=== PATIENT | male | born 1970 | race American Indian/Alaskan Native ===

== ENCOUNTER 2018-09-17 15:57 | Inpatient (IN) | payer OTHER ==
[2018-09-17 15:58] VITALS: BMI 31.8
[2018-09-17 18:03] LABS: VENOUS BLOOD GAS BASE EXCESS 2.4 mmol/L (0.0-2.0); VENOUS BLOOD GAS PCO2 29 mmHg (40-60); VENOUS BLOOD GAS PO2 35 mm/Hg (30-55); VENOUS BLOOD PH 7.53 (7.32-7.43)
[2018-09-17 18:09] LABS: BASO # 0.1 K/uL (0.0-0.2); BASO % 0.3 % (0.0-2.0); EOS % 0.1 % (0.0-4.0); HEMOGLOBIN 15.8 g/dL (12.0-18.0); LYMPH # 0.4 K/uL (1.0-4.3); LYMPH % 2.6 % (20.0-40.0); MEAN CELL VOLUME 85.1 fL (80.0-94.0); MEAN CORPUSCULAR HGB CONC 34.1 g/dL (33.0-37.0); MEAN PLATELET VOLUME 7.6 fL (7.2-11.7); MONO # 0.7 K/uL (0.0-0.8); NEUT # 15.9 K/uL (1.8-7.0); PLATELET COUNT 199 K/uL (130-400); RBC 5.43 Mil/uL (4.40-5.90); RED CELL DISTRIBUTION WIDTH 12.9 % (11.5-14.5); WHITE BLOOD COUNT 17.1 K/uL (4.8-10.8)
[2018-09-17] MEDS ORDERED: Sodium Chloride 0.9% 1,000 ML IV ONE (18:10)
--- NOTE | 2018-09-17 18:10 | C.PDOC ---
History Of Present Illness Patient is a 48 year old male who presents to the ED for evaluation of a cough that has been persistent for 11 days. Patient went to Dr. Jayce Santana for a CXR today, after which he suffered a syncopal episode and was found to be febrile, as per Dr. Santana. Patient states that he did not lose consciousness and just felt SOB and had to sit down. Patient was referred to ED by Dr. Jayce Santana for further evaluation. At the present moment patient is no longer SOB. He has additional complaint of left groin pain which has progressively gotten worse and notes pain when he moves. Patient denies any leg weakness, nausea, vomiting, chills, abdominal pain, or injury. Time Seen by Provider: 09/17/18 16:42 Chief Complaint (Nursing): Flu-like Symptoms History Per: Patient History/Exam Limitations: no limitations Onset/Duration Of Symptoms: Days (11 days ) Recent travel outside of the [place]: No Additional History Per: Patient Past Medical History Reviewed: Historical Data, Nursing Documentation, Vital Signs Vital Signs: Last Vital Signs Temp 101.4 F H 09/17/18 16:17 Pulse 98 H 09/17/18 16:17 Resp 22 09/17/18 16:17 BP 130/78 09/17/18 16:17 Pulse Ox 100 09/17/18 16:17 - Medical History PMH: Denies: Depression Surgical History: No Surg Hx Family History: States: Unknown Family Hx - Social History Hx Tobacco Use: No Hx Alcohol Use: Yes Hx Substance Use: No - Immunization History Hx Tetanus Toxoid Vaccination: No Hx Influenza Vaccination: No Hx Pneumococcal Vaccination: No Review Of Systems Constitutional: Positive for: Fever. Negative for: Chills, Weakness (leg ) Cardiovascular: Negative for: Chest Pain Respiratory: Positive for: Cough. Negative for: Shortness of Breath Gastrointestinal: Negative for: Nausea, Vomiting, Abdominal Pain Genitourinary: Positive for: Scrotal Pain Physical Exam - Physical Exam Appears: Non-toxic, No Acute Distress Skin: Normal Color, Warm, Dry Head: Atraumatic, Normacephalic Eye(s): bilateral: Normal Inspection Oral Mucosa: Moist Neck: Normal ROM, Supple Cardiovascular: Rhythm Regular Respiratory: Normal Breath Sounds, No Rales, No Rhonchi, No Wheezing Gastrointestinal/Abdominal: No Tenderness Male Genital: No Testicular Tenderness, No Testicular Swelling, Other (no hernia, cellulitis, or erythema. + left groin tenderness ) Extremity: No Tenderness (bilateral leg ) Extremity: Left: Other (Limited ROM left hip due to pain), Right: Normal ROM Pulses: Left Dorsalis Pedis: Normal, Right Dorsalis Pedis: Normal ED Course And Treatment - Laboratory Results Result Diagrams: 09/17/18 18:04 09/17/18 18:04 ECG: Interpreted By Me ECG Rhythm: Sinus Rhythm ECG Interpretation: Normal Interpretation Of ECG: normal axis, normal intervals, no ectopy, no ST elevation Rate From EC O2 Sat by Pulse Oximetry: 100 (on RA ) Pulse Ox Interpretation: Normal - Radiology CXR: Read By Radiologist CXR Interpretation: Yes: No Acute Disease Medical Decision Making Medical Decision Making: Patient is a 48 year old male who has presented to the ED for evaluation of a cough. Additional complaint of left groin pain. Plan: Bloodwork, VBG, EKG, CXR, Urinalysis, blood culture, urine culture, Tylenol 975 mg PO, Piperacillin, IV FLuids, Vancomicin 250 mg IVP Patient given tylenol PO for fever and groin pain. On re-eval patient appears much more comfortable and reports pain has improved. Labs done and results noted, particularly elevated lactate and leukocytosis. Patient given 30cc/kg NS bolus. Abx ordered. Case discussed with Dr. Checo Santana who accepts patient for admission to his service for fever of unknown origin. CXR clear, no evidence of pneumonia. Urine pending. Disposition - Disposition Disposition: HOSPITALIZED Disposition Time: 20:34 Condition: STABLE - Clinical Impression Clinical Impression: Fever, Left groin pain - Scribe Statement The provider has reviewed the documentation as recorded by the Carline Art All medical record entries made by the Carline were at my direction and personally dictated by me. I have reviewed the chart and agree that the record accurately reflects my personal performance of the history, physical exam, medical decision making, and the department course for this patient. I have also personally directed, reviewed, and agree with the discharge instructions and disposition.
[2018-09-17 18:16] LABS: INR 1.2; PROTHROMBIN TIME 12.8 SECONDS (9.7-12.2)
[2018-09-17] MEDS ORDERED: Sodium Chloride 0.9% 2,000 ML ONE (18:20)
[2018-09-17] MEDS ORDERED: Piperacill/Tazo 4.5gm in Dex 4.5 GM/100 ML BAG IVPB STA (18:24)
[2018-09-17 18:36] LABS: ALB/GLOB RATIO 1.7 (1.0-2.1); ALBUMIN 4.5 g/dL (3.5-5.0); ALT/SGPT 47 U/L (21-72); AST/SGOT 70 U/L (17-59); BLOOD UREA NITROGEN 22 mg/dL (9-20); CALCIUM 9.5 mg/dl (8.6-10.4); GFR NON-AFRICAN AMERICAN 50
[2018-09-17 18:54] LABS: BANDS 13 % (0-2); LYMPHOCYTE 3 % (20-40); MONOCYTE 2 % (0-10); NEUTROPHIL 81 % (50-75); PLATELET ESTIMATE NORMAL (NORMAL); REACTIVE LYMPHOCYTES 1 % (0-0); TOTAL CELLS COUNTED 100
[2018-09-17] MEDS ORDERED: Vancomycin 1 GM 1 GM/250 ML BAG IVPB ONE (19:03)
[2018-09-17 19:47] LABS: URINE BILIRUBIN NEGATIVE (NEGATIVE); URINE BLOOD NEGATIVE (NEGATIVE); URINE CLARITY Clear (Clear); URINE COLOR Yellow (YELLOW); URINE GLUCOSE (UA) NORMAL (Normal); URINE LEUKOCYTE ESTERASE NEG Leu/uL (Negative); URINE PROTEIN NEGATIVE (NEGATIVE); URINE UROBILINOGEN NORMAL mg/dL (0.2-1.0)
--- NOTE | 2018-09-17 19:48 | RAD ---
HISTORY: Sepsis Patient COMPARISON: Chest x-ray performed 04/07/13 TECHNIQUE: Chest, one view. FINDINGS: Examination limited by habitus. LUNGS: No focal consolidation. Please note that chest x-ray has limited sensitivity for the detection of pulmonary masses. PLEURA: No significant pleural effusion identified. No definite pneumothorax . CARDIOVASCULAR: Heart size appears within normal limits. Atherosclerotic calcification present. OSSEOUS STRUCTURES: No acute osseous abnormality identified. VISUALIZED UPPER ABDOMEN: Unremarkable. OTHER FINDINGS: None. IMPRESSION: No focal consolidation.
[2018-09-17] MEDS ORDERED: Piperacillin/Tazobact 3.375 gm 100 ML IVPB ONE (19:58)
[2018-09-17 20:03] LABS: VENOUS BLOOD GAS PCO2 26 mmHg (40-60); VENOUS BLOOD GAS PO2 25 mm/Hg (30-55); VENOUS BLOOD PH 7.38 (7.32-7.43)
--- NOTE | 2018-09-17 21:13 | CP.PCM.HP ---
Past Patient History - Past Social History Smoking Status: Never Smoked - PSYCHIATRIC Hx Depression: No Hx Substance Use: No - SURGICAL HISTORY Hx Surgeries: No Meds Allergies/Adverse Reactions: Allergies Allergy/AdvReac Type Severity Reaction Status Date / Time No Known Allergies Allergy Verified 03/12/13 10:47 Physical Exam - Constitutional Appears: Well - Head Exam Head Exam: ATRAUMATIC, NORMAL INSPECTION, NORMOCEPHALIC - Eye Exam Eye Exam: EOMI, Normal appearance, PERRL Pupil Exam: NORMAL ACCOMODATION, PERRL - ENT Exam ENT Exam: Mucous Membranes Moist, Normal Exam - Neck Exam Neck exam: Positive for: Normal Inspection - Respiratory Exam Respiratory Exam: Decreased Breath Sounds - Cardiovascular Exam Cardiovascular Exam: REGULAR RHYTHM, +S1, +S2 - GI/Abdominal Exam GI & Abdominal Exam: Diminished Bowel Sounds, Soft - Rectal Exam Rectal Exam: Deferred Results - Vital Signs Recent Vital Signs: Last Vital Signs Temp 99.6 F 09/17/18 21:10 Pulse 88 09/17/18 21:10 Resp 20 09/17/18 21:10 BP 100/60 09/17/18 21:10 Pulse Ox 100 09/17/18 21:10 - Labs Result Diagrams: 09/17/18 18:04 09/17/18 18:04 Labs: Laboratory Results - last 24 hr 09/17/18 09/17/18 09/17/18 17:50 18:04 18:04 WBC 17.1 H D RBC 5.43 Hgb 15.8 Hct 46.2 MCV 85.1 MCH 29.0 MCHC 34.1 RDW 12.9 Plt Count 199 MPV 7.6 Neut % (Auto) 93.0 H Lymph % (Auto) 2.6 L [place] % (Auto) 4.0 Eos % (Auto) 0.1 Baso % (Auto) 0.3 Neut # (Auto) 15.9 H Lymph # (Auto) 0.4 L [place] # (Auto) 0.7 Eos # (Auto) 0.0 Baso # (Auto) 0.1 Neutrophils % (Manual) 81 H Band Neutrophils % 13 H* Lymphocytes % (Manual) 3 L Reactive Lymphs % 1 H Monocytes % (Manual) 2 Platelet Estimate Normal PT 12.8 H INR 1.2 APTT 26 pO2 35 VBG pH 7.53 H VBG pCO2 29 L VBG HCO3 26.2 VBG Total CO2 25.1 VBG O2 Sat (Calc) 84.9 H VBG Base Excess 2.4 H VBG Potassium 3.0 L A-a O2 Difference Sodium 138.0 Chloride 104.0 Glucose 100 Lactate 2.8 H FiO2 21.0 Crit Value Called To Crit Value Called By Crit Value Read Back Blood Gas Notified Time Potassium Carbon Dioxide Anion Gap BUN Creatinine Est GFR ( Amer) Est GFR (Non-Af Amer) Random Glucose Calcium Phosphorus Magnesium Total Bilirubin AST ALT Alkaline Phosphatase Total Protein Albumin Globulin Albumin/Globulin Ratio Venous Blood Potassium 3.0 L Urine Color Urine Clarity Urine pH Ur Specific [place] Urine Protein Urine Glucose (UA) Urine Ketones Urine Blood Urine Nitrate Urine Bilirubin Urine Urobilinogen Ur Leukocyte Esterase Urine WBC (Auto) Influenza Typ A,B (EIA) 09/17/18 09/17/18 09/17/18 18:04 19:16 19:37 WBC RBC Hgb Hct MCV MCH MCHC RDW Plt Count MPV Neut % (Auto) Lymph % (Auto) [place] % (Auto) Eos % (Auto) Baso % (Auto) Neut # (Auto) Lymph # (Auto) [place] # (Auto) Eos # (Auto) Baso # (Auto) Neutrophils % (Manual) Band Neutrophils % Lymphocytes % (Manual) Reactive Lymphs % Monocytes % (Manual) Platelet Estimate PT INR APTT pO2 VBG pH VBG pCO2 VBG HCO3 VBG Total CO2 VBG O2 Sat (Calc) VBG Base Excess VBG Potassium A-a O2 Difference Sodium 136 Chloride 100 Glucose Lactate FiO2 Crit Value Called To Crit Value Called By Crit Value Read Back Blood Gas Notified Time Potassium 3.3 L Carbon Dioxide 27 Anion Gap 13 BUN 22 H Creatinine 1.5 Est GFR ( Amer) > 60 Est GFR (Non-Af Amer) 50 Random Glucose 97 Calcium 9.5 Phosphorus < 0.5 L* Magnesium 1.7 Total Bilirubin 0.8 AST 70 H ALT 47 Alkaline Phosphatase 66 Total Protein 7.2 Albumin 4.5 Globulin 2.7 Albumin/Globulin Ratio 1.7 Venous Blood Potassium Urine Color Yellow Urine Clarity Clear Urine pH 7.0 Ur Specific [place] 1.006 Urine Protein Negative Urine Glucose (UA) Normal Urine Ketones Negative Urine Blood Negative Urine Nitrate Negative Urine Bilirubin Negative Urine Urobilinogen Normal Ur Leukocyte Esterase Neg Urine WBC (Auto) < 1 Influenza Typ A,B (EIA) Negative for flu a/b 09/17/18 19:50 WBC RBC Hgb Hct MCV MCH MCHC RDW Plt Count MPV Neut % (Auto) Lymph % (Auto) [place] % (Auto) Eos % (Auto) Baso % (Auto) Neut # (Auto) Lymph # (Auto) [place] # (Auto) Eos # (Auto) Baso # (Auto) Neutrophils % (Manual) Band Neutrophils % Lymphocytes % (Manual) Reactive Lymphs % Monocytes % (Manual) Platelet Estimate PT INR APTT pO2 25 L VBG pH 7.38 VBG pCO2 26 L VBG HCO3 17.2 VBG Total CO2 16.2 L VBG O2 Sat (Calc) 67.5 H VBG Base Excess -8.0 L VBG Potassium 1.8 L* A-a O2 Difference 92.0 Sodium 148.0 Chloride 122.0 H Glucose 69 L Lactate 1.7 FiO2 21.0 Crit Value Called To Er doctor Crit Value Called By Isai Crit Value Read Back Y Blood Gas Notified Time 2001 Potassium Carbon Dioxide Anion Gap BUN Creatinine Est GFR ( Amer) Est GFR (Non-Af Amer) Random Glucose Calcium Phosphorus Magnesium Total Bilirubin AST ALT Alkaline Phosphatase Total Protein Albumin Globulin Albumin/Globulin Ratio Venous Blood Potassium 1.8 L* Urine Color Urine Clarity Urine pH Ur Specific [place] Urine Protein Urine Glucose (UA) Urine Ketones Urine Blood Urine Nitrate Urine Bilirubin Urine Urobilinogen Ur Leukocyte Esterase Urine WBC (Auto) Influenza Typ A,B (EIA)
[2018-09-17] MEDS ORDERED: Vancomycin 1 gm/NS 200 ml 1 GM/200 ML BAG IVPB SCH (22:00)
[2018-09-18] MEDS: Piperacill/Tazo 3.375gm in Dex 3.375 GM/50 ML BAG IVPB SCH ×4 (02:19→20:22)
[2018-09-18] MEDS: Enoxaparin 40 mg Syringe SC SCH (10:05)
[2018-09-18] MEDS ORDERED: Vancomycin 1 gm/NS 200 ml 1 GM/200 ML BAG IVPB SCH (19:00)
--- NOTE | 2018-09-18 21:24 | CP.PCM.PN ---
Subjective - Date & Time of Evaluation Date of Evaluation: 09/18/18 Time of Evaluation: 08:00 - Subjective Subjective: clinically same Objective - Vital Signs/Intake and Output Vital Signs (last 24 hours): Temp Pulse Resp BP Pulse Ox 98.4 F 71 20 108/67 96 09/18/18 16:34 09/18/18 16:34 09/18/18 16:34 09/18/18 16:34 09/18/18 16:34 Intake and Output: 09/18/18 09/19/18 18:59 06:59 Intake Total 910 Output Total 750 Balance 160 - Medications Medications: Current Medications Enoxaparin Sodium (Lovenox) 40 mg SC DAILY [facility] Last Admin: 09/18/18 10:05 Dose: 40 mg Piperacillin Sod/Tazobactam Sod (Zosyn 3.375 Gm Iv Premix) 3.375 gm in 50 mls @ 100 mls/hr IVPB Q6H [facility]; Protocol Last Admin: 09/18/18 20:22 Dose: 100 mls/hr Vancomycin/Sodium Chloride (Vancomycin 1 Gm/Ns 200 Ml) 1 gm in 200 mls @ 133 mls/hr IVPB Q24H [facility]; Protocol Stop: 09/23/18 19:01 Last Admin: 09/18/18 18:01 Dose: 133 mls/hr - Labs Labs: 09/17/18 18:04 09/17/18 18:04 PT 12.8 SECONDS (9.7-12.2) H 09/17/18 18:04 INR 1.2 09/17/18 18:04 APTT 26 SECONDS (21-34) 09/17/18 18:04
[2018-09-19] MEDS: Piperacill/Tazo 3.375gm in Dex 3.375 GM/50 ML BAG IVPB SCH ×4 (03:27→20:17)
[2018-09-19] MEDS: Enoxaparin 40 mg Syringe SC SCH (09:59)
--- NOTE | 2018-09-19 16:04 | CP.PCM.CON ---
History of Present Illness - History of Present Illness History of Present Illness: 48 year old male came to the ED for evaluation of a cough that has been persistent for 11 days. Patient went to Dr. Jayce Santana for a CXR today, after which he suffered a syncopal episode and was found to be febrile, Patient also c/o swelling LLE denies chest pain fever less + cough - Medical History PMH: cellulitis Denies: Depression Surgical History: No Surg Hx Family History: States: Unknown Family Hx - Social History Hx Tobacco Use: No Review of Systems - Review of Systems All systems: reviewed and no additional remarkable complaints except - Constitutional Constitutional: As Per HPI - EENT Eyes: absent: As Per HPI, Blind Spots, Blurred Vision, Change in Vision, Decreased Night Vision, Diplopia, Discharge, Dry Eye, Exophthalmos, Floaters, Irritation, Itchy Eyes, Loss of Peripheral Vision, Pain, Photophobia, Requires Corrective Lenses, Sees Flashes, Spots in Vision, Tunnel Vision, Other Visual Disturbances, Loss of Vision, Other Ears: absent: As Per HPI, Decreased Hearing, Ear Discharge, Ear Pain, Tinnitus, Abnormal Hearing, Disequilibrium, Dizziness, Other Nose/Mouth/Throat: absent: As Per HPI, Epistaxis, Nasal Congestion, Nasal Discharge, Nasal Obstruction, Nasal Trauma, Nose Pain, Post Nasal Drip, Sinus Pain, Sinus Pressure, Bleeding Gums, Change in Voice, Dental Pain, Dry Mouth, Dysphagia, Halitosis, Hoarsness, Lip Swelling, Mouth Lesions, Mouth Pain, Odynophagia, Sore Throat, Throat Swelling, Tongue Swelling, Facial Pain, Neck Pain, Neck Mass, Other - Cardiovascular Cardiovascular: As Per HPI - Respiratory Respiratory: As Per HPI, Cough. absent: Dyspnea - Gastrointestinal Gastrointestinal: absent: As Per HPI, Abdominal Pain, Belching, Bloating, Change in Bowel Habits, Change in Stool Character, Coffee Ground Emesis, Constipation, Cramping, Diarrhea, Dyspepsia, Dysphagia, Early Satiety, Excessive Flatus, Fecal Incontinence, Heartburn, Hematemesis, Hematochezia, Loose Stools, Melena, Nausea, Odynophagia, Temesmus, Vomiting, Other - Genitourinary Genitourinary: absent: As Per HPI, Change in Urinary Stream, Difficulty Urinating, Dysuria, Flank Pain, Hematuria, Pyuria, Nocturia, Urinary Incontinence, Urinary Frequency, Urinary Hesitance, Urinary Urgency, Voiding Freq/Small Amts, Freq UTI, Hx Renal/Bladder Calculi, Hx /Renal Surgery, Bladder Distension, Other - Musculoskeletal Musculoskeletal: As Per HPI - Integumentary Integumentary: As Per HPI - Neurological Neurological: absent: As Per HPI, Abnormal Gait, Abnormal Hearing, Abnormal Movements, Abnormal Speech, Behavioral Changes, Burning Sensations, Confusion, Convulsions, Disequilibrium, Dizziness, Numbness, Focal Weakness, Frequent Falls, Headaches, Lack of Coordination, Loss of Vision, Memory Loss, Paresthesias, Radicular Pain, Restless Legs, Sensory Deficit, Syncope, Tingling, Tremor, Vertigo, Weakness, Other Visual Disturbances, Other - Psychiatric Psychiatric: absent: As Per HPI, Abnormal Sleep Pattern, Anhedonia, Anxiety, Auditory Hallucinations, Behavioral Changes, Change in Appetite, Change in Libido, Confusion, Depression, Difficulty Concentrating, Hallucinations, Homicidal Ideation, Hopelessness, Irritability, Memory Loss, Mood Swings, Panic Attacks, Paranoia, Suicidal Ideation, Visual Hallucinations, Tactile Hallucinations, Other - Endocrine Endocrine: absent: As Per HPI, Change in Body Appearance, Change in Libido, Cold Intolorance, Deepening of Voice, Excessive Sweating, Fatigue, Flushing, Heat Intolorance, Increase in Ring/Shoe/Hat Size, Palpitations, Polydipsia, Polyphagia, Polyuria, Other - Hematologic/Lymphatic Hematologic: absent: As Per HPI, Easy Bleeding, Easy Bruising, Lymphadenopathy, Other Past Patient History - Past Medical History & Family History Past Medical History?: No - Past Social History Smoking Status: Never Smoked - MUSCULOSKELETAL/RHEUMATOLOGICAL Hx Falls: No - PSYCHIATRIC Hx Depression: No Hx Substance Use: No - SURGICAL HISTORY Hx Surgeries: No - ANESTHESIA Hx Anesthesia: No Meds Allergies/Adverse Reactions: Allergies Allergy/AdvReac Type Severity Reaction Status Date / Time No Known Allergies Allergy Verified 03/12/13 10:47 - Medications Medications: Current Medications Enoxaparin Sodium (Lovenox) 40 mg SC DAILY [facility] Last Admin: 09/19/18 09:59 Dose: 40 mg Piperacillin Sod/Tazobactam Sod (Zosyn 3.375 Gm Iv Premix) 3.375 gm in 50 mls @ 100 mls/hr IVPB Q6H [facility]; Protocol Last Admin: 09/19/18 14:03 Dose: 100 mls/hr Vancomycin/Sodium Chloride (Vancomycin 1 Gm/Ns 200 Ml) 1 gm in 200 mls @ 133 mls/hr IVPB Q24H [facility]; Protocol Stop: 09/23/18 19:01 Last Admin: 09/18/18 18:01 Dose: 133 mls/hr Physical Exam - Constitutional Appears: Non-toxic - Head Exam Head Exam: ATRAUMATIC, NORMOCEPHALIC - Eye Exam Eye Exam: EOMI, PERRL. absent: Scleral icterus - ENT Exam ENT Exam: Mucous Membranes Moist. absent: Normal Oropharynx - Neck Exam Neck exam: Negative for: Lymphadenopathy - Respiratory Exam Respiratory Exam: Decreased Breath Sounds - Cardiovascular Exam Cardiovascular Exam: REGULAR RHYTHM - GI/Abdominal Exam GI & Abdominal Exam: Diminished Bowel Sounds, Soft. absent: Tenderness - Rectal Exam Rectal Exam: Deferred - Exam Exam: NORMAL INSPECTION - Extremities Exam Extremities exam: Positive for: pedal edema, tenderness, pedal pulses present. Negative for: calf tenderness - Back Exam Back exam: absent: CVA tenderness (L), CVA tenderness (R) - Neurological Exam Neurological exam: Alert, CN II-XII Intact, Oriented x3, Reflexes Normal - Psychiatric Exam Psychiatric exam: Depressed Results - Vital Signs Recent Vital Signs: Last Vital Signs Temp 98.1 F 09/19/18 07:48 Pulse 65 09/19/18 07:48 Resp 20 09/19/18 07:48 BP 135/84 09/19/18 07:48 Pulse Ox 97 09/19/18 07:48 - Labs Result Diagrams: 09/17/18 18:04 09/17/18 18:04 Assessment & Plan (1) Fever Status: Acute (2) Left groin pain Status: Acute - Assessment and Plan (Free Text) Assessment: cont rx for cellulitis LLE consider CT angio chest venous doppler to r/o DVT DVT prophylaxis
[2018-09-19] MEDS: Vancomycin 1 gm/NS 200 ml 1 GM/200 ML BAG IVPB SCH (17:43)
--- NOTE | 2018-09-19 20:36 | CP.PCM.PN ---
Subjective - Date & Time of Evaluation Date of Evaluation: 09/19/18 Time of Evaluation: 07:45 - Subjective Subjective: clinically same Objective - Vital Signs/Intake and Output Vital Signs (last 24 hours): Temp Pulse Resp BP Pulse Ox 98.2 F 57 L 20 105/56 L 97 09/19/18 16:05 09/19/18 16:05 09/19/18 16:05 09/19/18 16:05 09/19/18 16:05 Intake and Output: 09/19/18 09/20/18 18:59 06:59 Intake Total 700 Balance 700 - Medications Medications: Current Medications Enoxaparin Sodium (Lovenox) 40 mg SC DAILY [facility] Last Admin: 09/19/18 09:59 Dose: 40 mg Piperacillin Sod/Tazobactam Sod (Zosyn 3.375 Gm Iv Premix) 3.375 gm in 50 mls @ 100 mls/hr IVPB Q6H [facility]; Protocol Last Admin: 09/19/18 20:17 Dose: 100 mls/hr Vancomycin/Sodium Chloride (Vancomycin 1 Gm/Ns 200 Ml) 1 gm in 200 mls @ 133.333 mls/hr IVPB Q12H [facility]; Protocol Last Admin: 09/19/18 17:43 Dose: 133.333 mls/hr - Labs Labs: 09/17/18 18:04 09/17/18 18:04 PT 12.8 SECONDS (9.7-12.2) H 09/17/18 18:04 INR 1.2 09/17/18 18:04 APTT 26 SECONDS (21-34) 09/17/18 18:04
[2018-09-19 20:53] LABS: BASO # 0.1 K/uL (0.0-0.2); BASO % 0.8 % (0.0-2.0); EOS # 0.2 K/uL (0.0-0.7); EOS % 1.4 % (0.0-4.0); HEMOGLOBIN 14.5 g/dL (12.0-18.0); LYMPH # 1.9 K/uL (1.0-4.3); LYMPH % 13.5 % (20.0-40.0); MEAN CELL VOLUME 86.8 fL (80.0-94.0); MEAN CORPUSCULAR HEMOGLOBIN 29.1 pg (27.0-31.0); MEAN CORPUSCULAR HGB CONC 33.5 g/dL (33.0-37.0); MEAN PLATELET VOLUME 7.6 fL (7.2-11.7); MONO # 0.6 K/uL (0.0-0.8); MONO % 4.4 % (0.0-10.0); NEUT # 11.2 K/uL (1.8-7.0); NEUT % 79.9 % (50.0-75.0); RBC 4.98 Mil/uL (4.40-5.90)
[2018-09-19 21:06] LABS: ALB/GLOB RATIO 1.4 (1.0-2.1); ALBUMIN 3.9 g/dL (3.5-5.0); ALT/SGPT 33 U/L (21-72); AST/SGOT 35 U/L (17-59); BLOOD UREA NITROGEN 14 mg/dL (9-20); CALCIUM 8.8 mg/dl (8.6-10.4); GFR NON-AFRICAN AMERICAN 50
[2018-09-20] MEDS: Piperacill/Tazo 3.375gm in Dex 3.375 GM/50 ML BAG IVPB SCH ×4 (02:30→20:26)
[2018-09-20] MEDS: Vancomycin 1 gm/NS 200 ml 1 GM/200 ML BAG IVPB SCH ×2 (05:18→17:22)
[2018-09-20 07:57] LABS: HEPATITIS B SURFACE AG Negative (NEGATIVE)
[2018-09-20 07:59] LABS: BASO # 0.1 K/uL (0.0-0.2); BASO % 0.6 % (0.0-2.0); EOS # 0.2 K/uL (0.0-0.7); EOS % 1.5 % (0.0-4.0); HEMOGLOBIN 14.7 g/dL (12.0-18.0); LYMPH # 1.6 K/uL (1.0-4.3); LYMPH % 15.6 % (20.0-40.0); MEAN CELL VOLUME 86.9 fL (80.0-94.0); MEAN CORPUSCULAR HEMOGLOBIN 29.8 pg (27.0-31.0); MEAN CORPUSCULAR HGB CONC 34.3 g/dL (33.0-37.0); MEAN PLATELET VOLUME 7.9 fL (7.2-11.7); MONO # 0.5 K/uL (0.0-0.8); MONO % 4.8 % (0.0-10.0); NEUT # 8.1 K/uL (1.8-7.0); NEUT % 77.5 % (50.0-75.0); RBC 4.92 Mil/uL (4.40-5.90); WHITE BLOOD COUNT 10.4 K/uL (4.8-10.8)
[2018-09-20 08:03] LABS: HEPATITIS A IGM NEGATIVE (NEGATIVE); HEPATITIS B CORE AB NEGATIVE (NEGATIVE)
[2018-09-20 08:14] LABS: HEPATITIS C ANTIBODY NEGATIVE (NEGATIVE)
[2018-09-20 08:15] LABS: ALB/GLOB RATIO 1.4 (1.0-2.1); ALBUMIN 3.7 g/dL (3.5-5.0); ALT/SGPT 33 U/L (21-72); AST/SGOT 32 U/L (17-59); BLOOD UREA NITROGEN 12 mg/dL (9-20); GFR NON-AFRICAN AMERICAN 54
[2018-09-20] MEDS: Enoxaparin 40 mg Syringe SC SCH (09:59)
--- NOTE | 2018-09-20 12:21 | CARD ---
APPROVED REPORT Date of service: 09/17/2018 EKG Measurement Heart [id number] <Conclusion> Normal sinus rhythm Normal ECG
--- NOTE | 2018-09-20 12:39 | CP.PCM.PN ---
Subjective - Date & Time of Evaluation Date of Evaluation: 09/20/18 Time of Evaluation: 09:00 - Subjective Subjective: AFEB 'C/O PAIN LLE Objective - Vital Signs/Intake and Output Vital Signs (last 24 hours): Temp Pulse Resp BP Pulse Ox 98.1 F 60 95 H 155/84 H 95 09/20/18 07:00 09/20/18 07:00 09/20/18 07:00 09/20/18 07:00 09/20/18 07:00 Intake and Output: 09/20/18 09/20/18 06:59 18:59 Intake Total 250 Output Total 800 Balance -550 - Medications Medications: Current Medications Enoxaparin Sodium (Lovenox) 40 mg SC DAILY [facility] Last Admin: 09/20/18 09:59 Dose: 40 mg Piperacillin Sod/Tazobactam Sod (Zosyn 3.375 Gm Iv Premix) 3.375 gm in 50 mls @ 100 mls/hr IVPB Q6H [facility]; Protocol Last Admin: 09/20/18 09:59 Dose: 100 mls/hr Vancomycin/Sodium Chloride (Vancomycin 1 Gm/Ns 200 Ml) 1 gm in 200 mls @ 133.333 mls/hr IVPB Q12H [facility]; Protocol Last Admin: 09/20/18 05:18 Dose: 133.333 mls/hr - Labs Labs: 09/20/18 07:46 09/20/18 07:46 PT 12.8 SECONDS (9.7-12.2) H 09/17/18 18:04 INR 1.2 09/17/18 18:04 APTT 26 SECONDS (21-34) 09/17/18 18:04 - Constitutional Appears: Non-toxic, Chronically Ill - Head Exam Head Exam: NORMOCEPHALIC - Eye Exam Eye Exam: absent: Scleral icterus - ENT Exam ENT Exam: Mucous Membranes Dry - Neck Exam Neck Exam: absent: Thyromegaly - Respiratory Exam Respiratory Exam: Decreased Breath Sounds - Cardiovascular Exam Cardiovascular Exam: REGULAR RHYTHM - GI/Abdominal Exam GI & Abdominal Exam: Distended - Rectal Exam Rectal Exam: Deferred - Exam Exam: NORMAL INSPECTION - Extremities Exam Extremities Exam: Pedal Edema, Tenderness. absent: Calf Tenderness - Back Exam Back Exam: absent: CVA tenderness (L), CVA tenderness (R), paraspinal tenderness - Neurological Exam Neurological Exam: Alert, Awake, Oriented x3 Assessment and Plan (1) Fever Status: Acute (2) Left groin pain Status: Acute - Assessment and Plan (Free Text) Assessment: AWAIT CULTURES CONT IV RX IMAGING NEEDED
--- NOTE | 2018-09-20 12:40 | CP.PCM.PCO ---
Physician Communication Note - Physician Communication Note Physician Communication Note: AWAIT ULTRASOUND PROCALCITONIN HIGH ? ABSCESS LLE
[2018-09-20 16:37] VITALS: RESP 20
--- NOTE | 2018-09-20 17:58 | CP.PCM.PN ---
Subjective - Date & Time of Evaluation Date of Evaluation: 09/20/18 Time of Evaluation: 08:15 - Subjective Subjective: clinically same Objective - Vital Signs/Intake and Output Vital Signs (last 24 hours): Temp Pulse Resp BP Pulse Ox 98.0 F 63 20 135/74 99 09/20/18 16:35 09/20/18 16:35 09/20/18 16:35 09/20/18 16:35 09/20/18 16:35 Intake and Output: 09/20/18 09/20/18 06:59 18:59 Intake Total 250 580 Output Total 800 Balance -550 580 - Medications Medications: Current Medications Enoxaparin Sodium (Lovenox) 40 mg SC DAILY [facility] Last Admin: 09/20/18 09:59 Dose: 40 mg Piperacillin Sod/Tazobactam Sod (Zosyn 3.375 Gm Iv Premix) 3.375 gm in 50 mls @ 100 mls/hr IVPB Q6H [facility]; Protocol Last Admin: 09/20/18 14:16 Dose: 100 mls/hr Vancomycin/Sodium Chloride (Vancomycin 1 Gm/Ns 200 Ml) 1 gm in 200 mls @ 133.333 mls/hr IVPB Q12H [facility]; Protocol Last Admin: 09/20/18 17:22 Dose: 133.333 mls/hr - Labs Labs: 09/20/18 07:46 09/20/18 07:46 PT 12.8 SECONDS (9.7-12.2) H 09/17/18 18:04 INR 1.2 09/17/18 18:04 APTT 26 SECONDS (21-34) 09/17/18 18:04
[2018-09-21] MEDS: Piperacill/Tazo 3.375gm in Dex 3.375 GM/50 ML BAG IVPB SCH ×4 (02:26→21:17)
[2018-09-21] MEDS: Vancomycin 1 gm/NS 200 ml 1 GM/200 ML BAG IVPB SCH ×2 (05:17→16:41)
[2018-09-21 08:02] LABS: BASO # 0.1 K/uL (0.0-0.2); BASO % 0.8 % (0.0-2.0); EOS # 0.2 K/uL (0.0-0.7); EOS % 3.6 % (0.0-4.0); HEMOGLOBIN 14.9 g/dL (12.0-18.0); LYMPH # 1.7 K/uL (1.0-4.3); LYMPH % 26.1 % (20.0-40.0); MEAN CELL VOLUME 86.9 fL (80.0-94.0); MEAN CORPUSCULAR HEMOGLOBIN 29.6 pg (27.0-31.0); MEAN CORPUSCULAR HGB CONC 34.1 g/dL (33.0-37.0); MEAN PLATELET VOLUME 7.9 fL (7.2-11.7); MONO # 0.4 K/uL (0.0-0.8); MONO % 5.6 % (0.0-10.0); NEUT # 4.2 K/uL (1.8-7.0); NEUT % 63.9 % (50.0-75.0); RBC 5.04 Mil/uL (4.40-5.90); RED CELL DISTRIBUTION WIDTH 12.9 % (11.5-14.5); WHITE BLOOD COUNT 6.6 K/uL (4.8-10.8)
[2018-09-21 08:26] LABS: ALB/GLOB RATIO 1.3 (1.0-2.1); ALBUMIN 3.7 g/dL (3.5-5.0); ALT/SGPT 30 U/L (21-72); AST/SGOT 31 U/L (17-59); BLOOD UREA NITROGEN 13 mg/dL (9-20); CALCIUM 8.9 mg/dl (8.6-10.4); GFR NON-AFRICAN AMERICAN 54
[2018-09-21] MEDS: Enoxaparin 40 mg Syringe SC SCH (09:31)
[2018-09-21] MEDS ORDERED: Pneumococcal 23-Valent Vaccine IM ONE (10:00)
[2018-09-21] MEDS ORDERED: Influenza Vaccine 60 mcg/0.5 mL SYR (4YR UP) IM ONE (10:00)
--- NOTE | 2018-09-21 11:40 | CP.PCM.PN ---
Subjective - Date & Time of Evaluation Date of Evaluation: 09/21/18 Time of Evaluation: 09:00 - Subjective Subjective: less septic no abscess left leg still warm and tender no pus all cultures neg procalcitonin is > 2 cont IV rx and wound care Objective - Vital Signs/Intake and Output Vital Signs (last 24 hours): Temp Pulse Resp BP Pulse Ox 98.1 F 58 L 20 130/82 96 09/21/18 08:06 09/21/18 08:06 09/21/18 08:06 09/21/18 08:06 09/21/18 08:06 Intake and Output: 09/21/18 09/21/18 06:59 18:59 Intake Total 550 Output Total 500 Balance 50 - Medications Medications: Current Medications Enoxaparin Sodium (Lovenox) 40 mg SC DAILY [facility] Last Admin: 09/21/18 09:31 Dose: 40 mg Piperacillin Sod/Tazobactam Sod (Zosyn 3.375 Gm Iv Premix) 3.375 gm in 50 mls @ 100 mls/hr IVPB Q6H [facility]; Protocol Last Admin: 09/21/18 08:54 Dose: 100 mls/hr Vancomycin/Sodium Chloride (Vancomycin 1 Gm/Ns 200 Ml) 1 gm in 200 mls @ 133.333 mls/hr IVPB Q12H [facility]; Protocol Last Admin: 09/21/18 05:17 Dose: 133.333 mls/hr - Labs Labs: 09/21/18 07:53 09/21/18 07:54 PT 12.8 SECONDS (9.7-12.2) H 09/17/18 18:04 INR 1.2 09/17/18 18:04 APTT 26 SECONDS (21-34) 09/17/18 18:04 - Constitutional Appears: Well - Head Exam Head Exam: ATRAUMATIC, NORMAL INSPECTION, NORMOCEPHALIC - Eye Exam Eye Exam: EOMI, Normal appearance, PERRL Pupil Exam: NORMAL ACCOMODATION, PERRL - ENT Exam ENT Exam: Mucous Membranes Moist, Normal Exam - Neck Exam Neck Exam: Full ROM, Normal Inspection. absent: Lymphadenopathy - Respiratory Exam Respiratory Exam: Clear to Ausculation Bilateral, NORMAL BREATHING PATTERN - Cardiovascular Exam Cardiovascular Exam: REGULAR RHYTHM, +S1, +S2. absent: Murmur - GI/Abdominal Exam GI & Abdominal Exam: Soft, Normal Bowel Sounds. absent: Tenderness - Rectal Exam Rectal Exam: NORMAL INSPECTION - Extremities Exam Extremities Exam: Full ROM, Normal Capillary Refill, Pedal Edema, Tenderness. absent: Joint Swelling, Normal Inspection - Back Exam Back Exam: NORMAL INSPECTION - Neurological Exam Neurological Exam: Alert, Awake, CN II-XII Intact, Normal Gait, Oriented x3 - Psychiatric Exam Psychiatric exam: Normal Affect, Normal Mood - Skin Skin Exam: Dry, Intact, Normal Color, Warm Assessment and Plan (1) Fever Status: Acute (2) Left groin pain Status: Acute
--- NOTE | 2018-09-21 15:11 | VASCLAB ---
Date of service: 09/20/2018 PROCEDURE: Lower Extremity Venous Duplex Exam. HISTORY: r/o DVT left leg PRIORS: None. TECHNIQUE: Bilateral common femoral, femoral, popliteal and posterior tibial, peroneal and great saphenous veins were evaluated. Flow was assessed with color Doppler, compressibility, assessment of phasic flow and augmentation response. Report prepared by Royal Zayas, CRISTIAN, RVT FINDINGS: RIGHT: 1. Common Femoral Vein: 1.1. Compressibility - Fully compressible: Thrombus - None : Flow - Phasic: Augmentation -Normal: Reflux - None. 2. Femoral Vein: 2.1. Compressibility - Fully compressible: Thrombus - None : Flow - Phasic: Augmentation -Normal: Reflux - None. 3. Popliteal Vein: 3.1. Compressibility - Fully compressible: Thrombus - None : Flow - Phasic: Augmentation -Normal: Reflux - None. 4. Posterior Tibial Vein: 4.1. Compressibility - Fully compressible: Thrombus - None: Flow - Phasic: Augmentation -Normal: Reflux - None. 5. Peroneal Vein: 5.1. Compressibility - Fully compressible: Thrombus - None: Flow - Phasic: Augmentation -Normal: Reflux - None. 6. Great Saphenous Vein: 6.1. Compressibility - Fully compressible: Thrombus - None: Flow - Phasic: Augmentation - Normal: Reflux - None. LEFT: 1. Common Femoral Vein: 1.1. Compressibility - Fully compressible: Thrombus - None: Flow - Phasic: Augmentation -Normal: Reflux - None. 2. Femoral Vein: 2.1. Compressibility - Fully compressible: Thrombus - None: Flow - Phasic: Augmentation -Normal: Reflux - None. 3. Popliteal Vein: 3.1. Compressibility - Fully compressible: Thrombus - None : Flow - Phasic: Augmentation -Normal: Reflux - None. 4. Posterior Tibial Vein: 4.1. Compressibility - Fully compressible: Thrombus - None: Flow - Phasic: Augmentation -Normal: Reflux - None. 5. Peroneal Vein: 5.1. Compressibility - Fully compressible: Thrombus - None: Flow - Phasic: Augmentation -Normal: Reflux - None. 6. Great Saphenous Vein: 6.1. Compressibility - Fully compressible: Thrombus - None: Flow - Phasic: Augmentation - Normal: Reflux - None. OTHER FINDINGS: Right: None significant. Left: None significant. IMPRESSION: Right: No evidence of deep or superficial vein thrombosis of the right lower extremity. Normal valve function noted of the right side. Left: No evidence of deep or superficial vein thrombosis of the left lower extremity. Normal valve function noted of the left side.
--- NOTE | 2018-09-21 16:23 | CP.PCM.CON ---
History of Present Illness - History of Present Illness History of Present Illness: Vascular Surgery Progress note. Dr. Tesfaye 48yo M with no significant PMHx here for evaluation of left lower extremity swelling and pain. Patient reports left lower extremity swelling for the past 4 days. Does report some subjective fevers. States that he has had similar complaints in the past when he was diagnosed with cellulitis. Pain has been persistent. Denies any trauma. No other complaints. No Chest pain. no Shortness of breath. No Abd pain. No N/V/D. No urinary complaints. PMHx: denies PSHx: denies Family Hx: non-contributory Social Hx: Denies Tobacco use. Denies ETOH use. Denies illicit drugs NKDA Review of Systems - Review of Systems All systems: reviewed and no additional remarkable complaints except Review of Systems: as per HPI - Constitutional Constitutional: Chills, Fever Past Patient History - Past Medical History & Family History Past Medical History?: No Past Family History: Reviewed and not pertinent - Past Social History Smoking Status: Never Smoked Alcohol: None Drugs: Denies - MUSCULOSKELETAL/RHEUMATOLOGICAL Hx Falls: No - PSYCHIATRIC Hx Depression: No Hx Substance Use: No - SURGICAL HISTORY Hx Surgeries: No - ANESTHESIA Hx Anesthesia: No Meds Allergies/Adverse Reactions: Allergies Allergy/AdvReac Type Severity Reaction Status Date / Time No Known Allergies Allergy Verified 03/12/13 10:47 - Medications Medications: Current Medications Enoxaparin Sodium (Lovenox) 40 mg SC DAILY [facility] Last Admin: 09/21/18 09:31 Dose: 40 mg Piperacillin Sod/Tazobactam Sod (Zosyn 3.375 Gm Iv Premix) 3.375 gm in 50 mls @ 100 mls/hr IVPB Q6H PATY; Protocol Last Admin: 09/21/18 14:05 Dose: 100 mls/hr Vancomycin/Sodium Chloride (Vancomycin 1 Gm/Ns 200 Ml) 1 gm in 200 mls @ 133.333 mls/hr IVPB Q12H PATY; Protocol Last Admin: 09/21/18 05:17 Dose: 133.333 mls/hr Physical Exam - Constitutional Appears: Non-toxic - Head Exam Head Exam: ATRAUMATIC, NORMAL INSPECTION, NORMOCEPHALIC - Eye Exam Eye Exam: EOMI, Normal appearance. absent: Scleral icterus - ENT Exam ENT Exam: Mucous Membranes Moist - Respiratory Exam Respiratory Exam: NORMAL BREATHING PATTERN. absent: Accessory Muscle Use, R espiratory Distress - Cardiovascular Exam Cardiovascular Exam: RRR. absent: JVD - GI/Abdominal Exam GI & Abdominal Exam: Soft. absent: Distended, Firm, Hernia - Extremities Exam Additional comments: Mild non-pitting edema to left lower extremity. Mild tenderness to palpation to left lower extremity, distal to the cobb - Back Exam Back exam: NORMAL INSPECTION - Neurological Exam Neurological exam: Alert, Oriented x3 - Skin Skin Exam: Dry, Intact, Normal Color, Warm Results - Vital Signs Recent Vital Signs: Last Vital Signs Temp 98.1 F 09/21/18 08:06 Pulse 58 L 09/21/18 08:06 Resp 20 09/21/18 08:06 BP 130/82 09/21/18 08:06 Pulse Ox 96 09/21/18 08:06 - Labs Result Diagrams: 09/21/18 07:53 09/21/18 07:54 Labs: Laboratory Results - last 24 hr 09/20/18 09/21/18 09/21/18 16:59 04:31 07:53 WBC 6.6 RBC 5.04 Hgb 14.9 Hct 43.8 MCV 86.9 MCH 29.6 MCHC 34.1 RDW 12.9 Plt Count 205 MPV 7.9 Neut % (Auto) 63.9 Lymph % (Auto) 26.1 [place] % (Auto) 5.6 Eos % (Auto) 3.6 Baso % (Auto) 0.8 Neut # (Auto) 4.2 Lymph # (Auto) 1.7 [place] # (Auto) 0.4 Eos # (Auto) 0.2 Baso # (Auto) 0.1 Sodium Potassium Chloride Carbon Dioxide Anion Gap BUN Creatinine Est GFR ( Amer) Est GFR (Non-Af Amer) Random Glucose Calcium Total Bilirubin AST ALT Alkaline Phosphatase Total Protein Albumin Globulin Albumin/Globulin Ratio Procalcitonin Vancomycin Trough 7.9 HIV 1&2 Antibody Screen Negative 09/21/18 09/21/18 07:54 07:54 WBC RBC Hgb Hct MCV MCH MCHC RDW Plt Count MPV Neut % (Auto) Lymph % (Auto) [place] % (Auto) Eos % (Auto) Baso % (Auto) Neut # (Auto) Lymph # (Auto) [place] # (Auto) Eos # (Auto) Baso # (Auto) Sodium 138 Potassium 3.8 Chloride 107 Carbon Dioxide 25 Anion Gap 11 BUN 13 Creatinine 1.4 Est GFR ( Amer) > 60 Est GFR (Non-Af Amer) 54 Random Glucose 92 Calcium 8.9 Total Bilirubin 0.5 AST 31 ALT 30 Alkaline Phosphatase 51 Total Protein 6.5 Albumin 3.7 Globulin 2.8 Albumin/Globulin Ratio 1.3 Procalcitonin 1.98 H Vancomycin Trough HIV 1&2 Antibody Screen Assessment & Plan - Assessment and Plan (Free Text) Assessment: 48yo M with left lower extremity swelling. - No evidence of DVT on US Plan: - Lower extremity US arterial dopplers ordered, including PVR - further recs following vascular lab study Further recs as per Dr. Brien Burgos PGY2 Surgery
--- NOTE | 2018-09-21 17:40 | CP.PCM.PN ---
Subjective - Date & Time of Evaluation Date of Evaluation: 09/21/18 Time of Evaluation: 17:40 Objective - Vital Signs/Intake and Output Vital Signs (last 24 hours): Temp Pulse Resp BP Pulse Ox 98.1 F 55 L 20 146/74 95 09/21/18 16:00 09/21/18 16:00 09/21/18 16:00 09/21/18 16:00 09/21/18 16:00 Intake and Output: 09/21/18 09/21/18 06:59 18:59 Intake Total 550 Output Total 500 Balance 50 - Medications Medications: Current Medications Enoxaparin Sodium (Lovenox) 40 mg SC DAILY [facility] Last Admin: 09/21/18 09:31 Dose: 40 mg Piperacillin Sod/Tazobactam Sod (Zosyn 3.375 Gm Iv Premix) 3.375 gm in 50 mls @ 100 mls/hr IVPB Q6H PATY; Protocol Last Admin: 09/21/18 14:05 Dose: 100 mls/hr Vancomycin/Sodium Chloride (Vancomycin 1 Gm/Ns 200 Ml) 1 gm in 200 mls @ 133.333 mls/hr IVPB Q12H PATY; Protocol Last Admin: 09/21/18 16:41 Dose: 133.333 mls/hr - Labs Labs: 09/21/18 07:53 09/21/18 07:54 PT 12.8 SECONDS (9.7-12.2) H 09/17/18 18:04 INR 1.2 09/17/18 18:04 APTT 26 SECONDS (21-34) 09/17/18 18:04
[2018-09-22] MEDS: Piperacill/Tazo 3.375gm in Dex 3.375 GM/50 ML BAG IVPB SCH ×4 (02:59→20:40)
[2018-09-22] MEDS: Vancomycin 1 gm/NS 200 ml 1 GM/200 ML BAG IVPB SCH ×2 (05:01→16:54)
--- NOTE | 2018-09-22 08:30 | CP.PCM.PN ---
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 No acute overnight events. States he feels better this AM and leg pain has improved. Pt states he is able to ambulate on his left leg and only has pain with pressure. Denies fevers/chills. Objective - Vital Signs/Intake and Output Vital Signs (last 24 hours): Temp Pulse Resp BP Pulse Ox 97.7 F 48 L 20 122/79 95 09/22/18 07:12 09/22/18 07:12 09/22/18 07:12 09/22/18 07:12 09/22/18 07:12 Intake and Output: 09/22/18 09/22/18 06:59 18:59 Intake Total 1050 Output Total 650 Balance 400 - Medications Medications: Current Medications Enoxaparin Sodium (Lovenox) 40 mg SC DAILY [facility] Last Admin: 09/21/18 09:31 Dose: 40 mg Piperacillin Sod/Tazobactam Sod (Zosyn 3.375 Gm Iv Premix) 3.375 gm in 50 mls @ 100 mls/hr IVPB Q6H PATY; Protocol Last Admin: 09/22/18 02:59 Dose: 100 mls/hr Vancomycin/Sodium Chloride (Vancomycin 1 Gm/Ns 200 Ml) 1 gm in 200 mls @ 133.333 mls/hr IVPB Q12H PATY; Protocol Last Admin: 09/22/18 05:01 Dose: 133.333 mls/hr - Labs Labs: 09/21/18 07:53 09/21/18 07:54 PT 12.8 SECONDS (9.7-12.2) H 09/17/18 18:04 INR 1.2 09/17/18 18:04 APTT 26 SECONDS (21-34) 09/17/18 18:04 - Constitutional Appears: Well, No Acute Distress - Head Exam Head Exam: ATRAUMATIC, NORMOCEPHALIC - Eye Exam Eye Exam: Normal appearance - ENT Exam ENT Exam: Mucous Membranes Moist - Respiratory Exam Respiratory Exam: NORMAL BREATHING PATTERN - Cardiovascular Exam Cardiovascular Exam: RRR - GI/Abdominal Exam GI & Abdominal Exam: Soft. absent: Tenderness - Extremities Exam Additional comments: LLE with celullitis anterior cobb, no drainage or purulence noted. 2+ distal pulses - Neurological Exam Neurological Exam: Alert, Awake, Oriented x3 - Skin Skin Exam: Dry, Intact, Warm Assessment and Plan - Assessment and Plan (Free Text) Assessment: 48M LLE cellulitis Plan: - f/u SHAMIR/PVRs - cont ABX - no plan for vascular surgery intervention at this time - d/w Dr. Brien Patel
[2018-09-22] MEDS: Enoxaparin 40 mg Syringe SC SCH (09:17)
--- NOTE | 2018-09-22 14:21 | CP.PCM.PN ---
Subjective - Date & Time of Evaluation Date of Evaluation: 09/22/18 Time of Evaluation: 14:21 Objective - Vital Signs/Intake and Output Vital Signs (last 24 hours): Temp Pulse Resp BP Pulse Ox 97.7 F 48 L 20 122/79 95 09/22/18 07:12 09/22/18 07:12 09/22/18 07:12 09/22/18 07:12 09/22/18 07:12 Intake and Output: 09/22/18 09/22/18 06:59 18:59 Intake Total 1050 300 Output Total 650 Balance 400 300 - Medications Medications: Current Medications Enoxaparin Sodium (Lovenox) 40 mg SC DAILY [facility] Last Admin: 09/22/18 09:17 Dose: Not Given Piperacillin Sod/Tazobactam Sod (Zosyn 3.375 Gm Iv Premix) 3.375 gm in 50 mls @ 100 mls/hr IVPB Q6H PATY; Protocol Last Admin: 09/22/18 14:05 Dose: 100 mls/hr Vancomycin/Sodium Chloride (Vancomycin 1 Gm/Ns 200 Ml) 1 gm in 200 mls @ 133.333 mls/hr IVPB Q12H PATY; Protocol Last Admin: 09/22/18 05:01 Dose: 133.333 mls/hr - Labs Labs: 09/21/18 07:53 09/21/18 07:54 PT 12.8 SECONDS (9.7-12.2) H 09/17/18 18:04 INR 1.2 09/17/18 18:04 APTT 26 SECONDS (21-34) 09/17/18 18:04
--- NOTE | 2018-09-22 18:38 | CP.PCM.PN ---
Subjective - Date & Time of Evaluation Date of Evaluation: 09/22/18 Time of Evaluation: 09:00 - Subjective Subjective: no fever less pain and swelling left leg no chest pain or SOB Objective - Vital Signs/Intake and Output Vital Signs (last 24 hours): Temp Pulse Resp BP Pulse Ox 98.2 F 62 20 128/87 96 09/22/18 16:00 09/22/18 16:00 09/22/18 16:00 09/22/18 16:00 09/22/18 16:00 Intake and Output: 09/22/18 09/22/18 06:59 18:59 Intake Total 1050 300 Output Total 650 Balance 400 300 - Medications Medications: Current Medications Enoxaparin Sodium (Lovenox) 40 mg SC DAILY [facility] Last Admin: 09/22/18 09:17 Dose: Not Given Piperacillin Sod/Tazobactam Sod (Zosyn 3.375 Gm Iv Premix) 3.375 gm in 50 mls @ 100 mls/hr IVPB Q6H PATY; Protocol Last Admin: 09/22/18 14:05 Dose: 100 mls/hr Vancomycin/Sodium Chloride (Vancomycin 1 Gm/Ns 200 Ml) 1 gm in 200 mls @ 133.333 mls/hr IVPB Q12H PATY; Protocol Last Admin: 09/22/18 16:54 Dose: 133.333 mls/hr - Labs Labs: 09/21/18 07:53 09/21/18 07:54 PT 12.8 SECONDS (9.7-12.2) H 09/17/18 18:04 INR 1.2 09/17/18 18:04 APTT 26 SECONDS (21-34) 09/17/18 18:04 - Constitutional Appears: Well - Head Exam Head Exam: ATRAUMATIC, NORMAL INSPECTION, NORMOCEPHALIC - Eye Exam Eye Exam: EOMI, Normal appearance, PERRL Pupil Exam: NORMAL ACCOMODATION, PERRL - ENT Exam ENT Exam: Mucous Membranes Moist, Normal Exam - Neck Exam Neck Exam: Full ROM, Normal Inspection. absent: Lymphadenopathy - Respiratory Exam Respiratory Exam: Clear to Ausculation Bilateral, NORMAL BREATHING PATTERN - Cardiovascular Exam Cardiovascular Exam: REGULAR RHYTHM, +S1, +S2. absent: Murmur - GI/Abdominal Exam GI & Abdominal Exam: Soft, Normal Bowel Sounds. absent: Tenderness - Rectal Exam Rectal Exam: NORMAL INSPECTION - Extremities Exam Extremities Exam: Full ROM, Normal Capillary Refill, Normal Inspection. absent: Joint Swelling, Pedal Edema - Back Exam Back Exam: NORMAL INSPECTION - Neurological Exam Neurological Exam: Alert, Awake, CN II-XII Intact, Normal Gait, Oriented x3 - Psychiatric Exam Psychiatric exam: Normal Affect, Normal Mood - Skin Skin Exam: Dry, Intact, Normal Color, Warm Assessment and Plan (1) Fever Status: Acute (2) Left groin pain Status: Acute - Assessment and Plan (Free Text) Assessment: improving procalcitonin level ok to d/c tomorrow after completion o0f 7 days iv antibiotics should not need antibiotics on discharge
[2018-09-23] MEDS: Piperacill/Tazo 3.375gm in Dex 3.375 GM/50 ML BAG IVPB SCH (02:30)
[2018-09-23] MEDS: Vancomycin 1 gm/NS 200 ml 1 GM/200 ML BAG IVPB SCH ×2 (04:00→17:07)
[2018-09-23] MEDS: Enoxaparin 40 mg Syringe SC SCH (09:22)
--- NOTE | 2018-09-23 13:30 | VASCLAB ---
Date of service: 09/22/2018 STUDY DESCRIPTION: Lower Extremity Arterial Exam (PVR). HISTORY: peripheral vascular disease PRIORS: None. TECHNIQUE: Pulse volume recording waveforms and segmental pressures of bilateral lower extremities at multiple levels were obtained. Ankle Brachial Indices (ABIs) were calculated. Report prepared by CRISTIAN Rushing, RVT RIGHT LOWER EXTREMITY: * Brachial artery: Pressure - 121 mmHg. * High thigh: Pressure - 167 mmHg: Ratio - 1.38: PVR waveform - Pulsatile * Low thigh: Pressure - 151 mmHg: Ratio - 1.25 PVR waveform: Pulsatile * Calf: Pressure - 165 mmHg: Ratio - 1.36 PVR waveform: Pulsatile * Posterior tibial Artery: Pressure - 147 mmHg: Ratio - 1.21 PVR waveform: Pulsatile * Dorsalis pedis Artery: Pressure - 141 mmHg: Ratio - 1.17 PVR waveform: Pulsatile * Great toe: Pressure - mmHg: Ratio - PVR waveform: Ankle brachial index (SHAMIR): 1.21 LEFT LOWER EXTREMITY: * Brachial artery: Pressure - 115 mmHg. * High thigh: Pressure - 182 mmHg: Ratio - 1.50: PVR waveform - Pulsatile * Low thigh: Pressure - 167 mmHg: Ratio - 1.38 PVR waveform: Pulsatile * Calf: Pressure - 155 mmHg: Ratio - 1.28 PVR waveform: Pulsatile * Posterior tibial Artery: Pressure - 149 mmHg: Ratio - 1.23 PVR waveform: Pulsatile * Dorsalis pedis Artery: Pressure - 145 mmHg: Ratio - 1.20 PVR waveform: Pulsatile * Great toe: Pressure - mmHg: Ratio - PVR waveform: Pulsatile Ankle brachial index (SHAMIR): 1.23 OTHER FINDINGS: Right: Left: IMPRESSION: Right: There was no evidence of hemodynamically significant arterial insufficiency in the right lower extremity. Left: There was no evidence of hemodynamically significant arterial insufficiency in the left lower extremity.
--- NOTE | 2018-09-23 13:46 | CP.PCM.DIS ---
Provider - Provider Date of Admission: 09/17/18 20:33 Attending physician: Dwain Santana MD Consults: 09/17/18 21:52 Physician Consult Routine Comment: Consulting Provider: Royal Shoemaker Consulting Physician: Royal Shoemaker Reason for Consult: sepsis 09/21/18 08:37 Physician Consult Routine Comment: LLE pain Consulting Provider: Clayton Tesfaye Jr. Consulting Physician: Clayton Tesfaye Jr. Reason for Consult: LLE pain Hospital Course - Lab Results Lab Results: Micro Results 09/17/18 18:25 Blood Blood Culture - Final NO GROWTH AFTER 5 DAYS 09/17/18 18:25 Blood Gram Stain - Final TEST NOT PERFORMED 09/17/18 17:45 Blood Blood Culture - Final NO GROWTH AFTER 5 DAYS 09/17/18 17:45 Blood Gram Stain - Final TEST NOT PERFORMED 09/17/18 19:37 Urine Urine Culture - Final No Growth (<1,000 CFU/ML) Most Recent Lab Values WBC 6.6 K/uL (4.8-10.8) 09/21/18 07:53 RBC 5.04 Mil/uL (4.40-5.90) 09/21/18 07:53 Hgb 14.9 g/dL (12.0-18.0) 09/21/18 07:53 Hct 43.8 % (35.0-51.0) 09/21/18 07:53 MCV 86.9 fL (80.0-94.0) 09/21/18 07:53 MCH 29.6 pg (27.0-31.0) 09/21/18 07:53 MCHC 34.1 g/dL (33.0-37.0) 09/21/18 07:53 RDW 12.9 % (11.5-14.5) 09/21/18 07:53 Plt Count 205 K/uL (130-400) 09/21/18 07:53 MPV 7.9 fL (7.2-11.7) 09/21/18 07:53 Neut % (Auto) 63.9 % (50.0-75.0) 09/21/18 07:53 Lymph % (Auto) 26.1 % (20.0-40.0) 09/21/18 07:53 [place] % (Auto) 5.6 % (0.0-10.0) 09/21/18 07:53 Eos % (Auto) 3.6 % (0.0-4.0) 09/21/18 07:53 Baso % (Auto) 0.8 % (0.0-2.0) 09/21/18 07:53 Neut # (Auto) 4.2 K/uL (1.8-7.0) 09/21/18 07:53 Lymph # (Auto) 1.7 K/uL (1.0-4.3) 09/21/18 07:53 [place] # (Auto) 0.4 K/uL (0.0-0.8) 09/21/18 07:53 Eos # (Auto) 0.2 K/uL (0.0-0.7) 09/21/18 07:53 Baso # (Auto) 0.1 K/uL (0.0-0.2) 09/21/18 07:53 Neutrophils % (Manual) 81 % (50-75) H 09/17/18 18:04 Band Neutrophils % 13 % (0-2) H* 09/17/18 18:04 Lymphocytes % (Manual) 3 % (20-40) L 09/17/18 18:04 Reactive Lymphs % 1 % (0-0) H 09/17/18 18:04 Monocytes % (Manual) 2 % (0-10) 09/17/18 18:04 Platelet Estimate Normal (NORMAL) 09/17/18 18:04 PT 12.8 SECONDS (9.7-12.2) H 09/17/18 18:04 INR 1.2 09/17/18 18:04 APTT 26 SECONDS (21-34) 09/17/18 18:04 pO2 25 mm/Hg (30-55) L 09/17/18 19:50 VBG pH 7.38 (7.32-7.43) 09/17/18 19:50 VBG pCO2 26 mmHg (40-60) L 09/17/18 19:50 VBG HCO3 17.2 mmol/L 09/17/18 19:50 VBG Total CO2 16.2 mmol/L (22-28) L 09/17/18 19:50 VBG O2 Sat (Calc) 67.5 % (40-65) H 09/17/18 19:50 VBG Base Excess -8.0 mmol/L (0.0-2.0) L 09/17/18 19:50 VBG Potassium 1.8 mmol/L (3.6-5.2) L* 09/17/18 19:50 A-a O2 Difference 92.0 mm/Hg 09/17/18 19:50 Sodium 148.0 mmol/l (132-148) 09/17/18 19:50 Chloride 122.0 mmol/L (98-107) H 09/17/18 19:50 Glucose 69 mg/dl (75-110) L 09/17/18 19:50 Lactate 1.7 mmol/L (0.7-2.1) 09/17/18 19:50 FiO2 21.0 % 09/17/18 19:50 Crit Value Called To Er doctor 09/17/18 19:50 Crit Value Called By Isai 09/17/18 19:50 Crit Value Read Back Y 09/17/18 19:50 Blood Gas Notified Time 200109/17/18 19:50 Sodium 138 mmol/L (132-148) 09/21/18 07:54 Potassium 3.8 mmol/L (3.6-5.2) 09/21/18 07:54 Chloride 107 mmol/L (98-107) 09/21/18 07:54 Carbon Dioxide 25 mmol/L (22-30) 09/21/18 07:54 Anion Gap 11 (10-20) 09/21/18 07:54 BUN 13 mg/dL (9-20) 09/21/18 07:54 Creatinine 1.4 mg/dL (0.8-1.5) 09/21/18 07:54 Est GFR ( Amer) > 60 09/21/18 07:54 Est GFR (Non-Af Amer) 54 09/21/18 07:54 Random Glucose 92 mg/dL (75-110) 09/21/18 07:54 Calcium 8.9 mg/dl (8.6-10.4) 09/21/18 07:54 Phosphorus 3.8 mg/dL (2.5-4.5) 09/20/18 07:46 Magnesium 2.0 mg/dL (1.6-2.3) 09/20/18 07:46 Total Bilirubin 0.5 mg/dL (0.2-1.3) 09/21/18 07:54 AST 31 U/L (17-59) 09/21/18 07:54 ALT 30 U/L (21-72) 09/21/18 07:54 Alkaline Phosphatase 51 U/L (38-126) 09/21/18 07:54 Total Protein 6.5 g/dL (6.3-8.3) 09/21/18 07:54 Albumin 3.7 g/dL (3.5-5.0) 09/21/18 07:54 Globulin 2.8 gm/dL (2.2-3.9) 09/21/18 07:54 Albumin/Globulin Ratio 1.3 (1.0-2.1) 09/21/18 07:54 Procalcitonin 0.96 NG/ML (0.19-0.49) H 09/22/18 08:07 Venous Blood Potassium 1.8 mmol/L (3.6-5.2) L* 09/17/18 19:50 Urine Color Yellow (YELLOW) 09/17/18 19:37 Urine Clarity Clear (Clear) 09/17/18 19:37 Urine pH 7.0 (5.0-8.0) 09/17/18 19:37 Ur Specific Rosie 1.006 (1.003-1.030) 09/17/18 19:37 Urine Protein Negative mg/dL (NEGATIVE) 09/17/18 19:37 Urine Glucose (UA) Normal mg/dL (Normal) 09/17/18 19:37 Urine Ketones Negative mg/dL (NEGATIVE) 09/17/18 19:37 Urine Blood Negative (NEGATIVE) 09/17/18 19:37 Urine Nitrate Negative (NEGATIVE) 09/17/18 19:37 Urine Bilirubin Negative (NEGATIVE) 09/17/18 19:37 Urine Urobilinogen Normal mg/dL (0.2-1.0) 09/17/18 19:37 Ur Leukocyte Esterase Neg Jamal/uL (Negative) 09/17/18 19:37 Urine WBC (Auto) < 1 /hpf (0-5) 09/17/18 19:37 Vancomycin Trough 7.9 ug/mL (5.0-10.0) 09/21/18 04:31 Hepatitis A IgM Ab Negative (NEGATIVE) 09/19/18 20:48 Hep Bs Antigen Negative (NEGATIVE) 09/19/18 20:48 Hep B Core IgM Ab Negative (NEGATIVE) 09/19/18 20:48 Hepatitis C Antibody Negative (NEGATIVE) 09/19/18 20:48 HIV 1&2 Antibody Screen Negative (NEGATIVE) 09/20/18 16:59 Influenza Typ A,B (EIA) Negative for flu a/b (NEGATIVE) 09/17/18 19:16 Discharge Exam - Head Exam Head Exam: ATRAUMATIC, NORMAL INSPECTION, NORMOCEPHALIC Discharge Plan - Follow Up Plan Condition: STABLE Disposition: HOME/ ROUTINE Referrals: Royal Shoemaker MD [Staff Provider] - Arya Santana MD [Staff Provider] -
--- NOTE | 2018-09-23 15:17 | CP.PCM.PN ---
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, leg edema and erythema improved , denies any complaints vss reviewed - stable , a febrile Objective - Vital Signs/Intake and Output Vital Signs (last 24 hours): Temp Pulse Resp BP Pulse Ox 98.3 F 63 20 143/80 96 09/23/18 07:57 09/23/18 07:57 09/23/18 07:57 09/23/18 07:57 09/23/18 07:57 Intake and Output: 09/23/18 09/23/18 06:59 18:59 Intake Total 550 Balance 550 - Medications Medications: Current Medications Enoxaparin Sodium (Lovenox) 40 mg SC DAILY [facility] Last Admin: 09/23/18 09:22 Dose: Not Given Vancomycin/Sodium Chloride (Vancomycin 1 Gm/Ns 200 Ml) 1 gm in 200 mls @ 133.333 mls/hr IVPB Q12H PAT[facility]; Protocol Last Admin: 09/23/18 04:00 Dose: 133.333 mls/hr - Labs Labs: 09/21/18 07:53 09/21/18 07:54 PT 12.8 SECONDS (9.7-12.2) H 09/17/18 18:04 INR 1.2 09/17/18 18:04 APTT 26 SECONDS (21-34) 09/17/18 18:04 Assessment and Plan - Assessment and Plan (Free Text) Assessment: A/P
[2018-09-23 16:01] VITALS: BP 120/72; PULSE 60; TEMP 98.1; O2SAT 100
== END 2018-09-23 19:17 | disposition home or self-care (01) | DRG 603 ==
LOC: C.ER 15:57 → C.3T 20:33
PROVIDERS: ADMIT Internal Medicine Nephrology; ATTEND Internal Medicine Nephrology
DX: L03.116 Cellulitis of left lower limb (principal); I73.9 Peripheral vascular disease, unspecified; R05 Cough; R55 Syncope and collapse